=== PATIENT | female | born 1965 | race American Indian/Alaskan Native ===

== ENCOUNTER 2017-08-28 08:20 | Outpatient (CLI) | payer BC ==
--- NOTE | 2017-08-28 09:31 | XRay Report ---
XRAY LEFT KNEE 4 VIEWS: 08/28/17 08:20:00 CLINICAL: Left knee pain. FINDINGS: Mild osteopenia. No fracture or dislocation. Mild medial joint space narrowing. Suspect a loose body in the joint space. A small ossification is identified at the tibial spine one view and in the medial joint space on another view. Mild patellofemoral joint osteoarthritis with inferior osteophyte and mild medial joint space narrowing. No joint effusion. IMPRESSION: Mild osteoarthritis with possible small loose body in the joint space.
== END 2017-08-28 08:21 | disposition home or self-care (01) ==
LOC: SPVIMAG 08:20
PROVIDERS: ATTEND Orthopaedic Surgery
DX: M17.12 Unilateral primary osteoarthritis, left knee (principal); M85.862 Other specified disorders of bone density and structure, left lower leg